=== PATIENT | male | born 1960 | race Caucasian/White ===

== ENCOUNTER 2016-08-22 01:49 | Inpatient (IN) | payer OTHER ==
[~2016-08-22] VITALS: Ht 157.5 cm; Wt 65.8 kg
[~2016-08-22 01:49] MED LIST: AMLO5TAB4 PO; APR50 PO; ASPI81TA16 PO; ATOR80TA75 PO; CARV6.2579 PO; CLOP75TA27 PO; GABA100C14 PO; GLIP-95 PO; IBUP-1542 PO; ISOS30TA5 PO
[2016-08-22] MEDS ORDERED: ONDANSETRON 4 MG INJ IV ONE (02:13)
[2016-08-22] MEDS ORDERED: morphine 4 MG/ML VIAL IV ONE (02:13)
[2016-08-22] MEDS ORDERED: hydrALAzine 20 MG INJ IV ONE (02:30)
--- NOTE | 2016-08-22 03:11 | RADRPT ---
PROCEDURE: Chest. CLINICAL INDICATION: Chest pain. TECHNIQUE: Single frontal view of the chest was obtained. COMPARISON: 08/05/2016. FINDINGS: The cardiac silhouette is enlarged. The aortic arch is unremarkable. There is mild bibasilar atele ctasis and small pleural effusions. There is mild central vascular congestion. There is no pneumot horax. IMPRESSION: Moderate cardiomegaly and mild central vascular congestion, unchanged. Mild bibasilar atelectasis and small pleural effusions, increased. .Suhas Rangel MD, Date Time Electronically viewed and signed by .Suhas Rangel MD, MD on 08/22/2016 03:10 .T/
--- NOTE | 2016-08-22 03:45 | RADRPT ---
PROCEDURE: CT Abdomen and pelvis without contrast. CLINICAL INDICATION: Abdominal pain. TECHNIQUE: CT scan of the abdomen and pelvis was performed on the [facility] LightSpeed 6 4 slice VCT scanner. Contiguous axial images using 2.5 mm slice thickness were obtained from the frank ng bases to the ischial tuberosities without intravenous contrast. Coronal and sagittal reformatted images were also obtained. Images were reviewed on the PACS workstation. One or more of the following dose reduction techniques were used: - Automated exposure control. - Adjustment of the mA and/or kV according to patient size. - Use of iterative reconstruction technique. Exam CTD/vol = 11.03 mGy. Total exam DLP = 674.92 mGy-cm. COMPARISON: 08/02/2016. FINDINGS: Evaluation of the lung bases demonstrates bilateral moderate pleural effusions with underlying atele ctasis. The heart is enlarged with coronary artery calcifications. Abdomen: The liver is normal in size. There is no focal mass or dilatation of the biliary tree. Ther e is been interval cholecystectomy with mild stranding and fluid within the gallbladder fossa. There is minimal pneumobilia. A biliary stent is present. The spleen, pancreas and bilateral adrenal gla nds are within normal limits. Bilateral kidneys are normal in size with no contour deforming mass id entified. There is no radiopaque renal or ureteral calculus identified. There is no hydronephrosis o r hydroureter. There is no retroperitoneal adenopathy. The abdominal aorta is of normal caliber with scattered atherosclerotic calcifications. There is a small umbilical hernia containing fat. There is moderate retained stool within the colon. There is no bowel obstruction or free air. A normal appendix is identified. There is no diverticulo sis or diverticulitis. There is mild intra-abdominal stranding and free fluid. Pelvis: The bladder is unremarkable. The prostate and seminal vesicles are within normal limits. The re is no significant pelvic adenopathy. There is moderate pelvic free fluid. Evaluation of the osseous structures demonstrates no suspicious lytic or blastic lesion. IMPRESSION: Status post cholecystectomy with mild fluid and stranding within the gallbladder fossa. There is mi ld to moderate abdominal and pelvic free fluid which is new compared with the prior study. Further evaluation for biliary leak is recommended with hepatobiliary nuclear scan. Biliary stent unchanged. Bilateral moderate pleural effusions with underlying atelectasis, unchanged compared with the prior study. Moderate cardiomegaly. Vascular calcifications reflective of atherosclerosis. Small umbilical hernia containing fat. Moderate retained stool within the colon. .Suhas Rangel MD, Date Time Electronically viewed and signed by .Suhas Rangel MD, MD on 08/22/2016 03:45 .T/
[2016-08-22 03:58] LABS: ADD UMIC YES; URINE BILIRUBIN (Dip) NEGATIVE (NEGATIVE); URINE BLOOD (Dip) 1+ (NEGATIVE); URINE COLOR LT. YELLOW (YELLOW); URINE GLUCOSE (Dip) NEGATIVE (NEGATIVE); URINE KETONES (Dip) NEGATIVE (NEGATIVE); URINE LEUKOCYTE ESTERASE (Dip) NEGATIVE (NEGATIVE); URINE NITRITE (Dip) NEGATIVE (NEGATIVE); URINE TOTAL PROTEIN (Dip) 4+ (NEGATIVE); URINE UROBILINOGEN (Dip) 0.2 E.U./dL (0.1-1.0)
[2016-08-22 04:07] LABS: INR 1.19; PROTIME 15.2 Sec (12.2-14.2); PT RATIO 1.2
[2016-08-22 04:08] LABS: PARTIAL THROMBOPLASTIN TIME 35.7 Sec (25.0-35.0)
[2016-08-22 04:10] LABS: BASOPHILS % 0.5 % (0.0-2.0); EOSINOPHILS # 0.3 10^3/ul (0.0-0.5); EOSINOPHILS % 4.4 % (0.0-7.0); HEMATOCRIT 29.1 % (42.0-52.0); HEMOGLOBIN 9.4 g/dl (14.0-18.0); LYMPHOCYTES # 1.1 10^3/ul (0.8-2.9); LYMPHOCYTES % 17.2 % (15.0-51.0); MEAN CORPUSCULAR HEMOGLOBIN 25.5 pg (29.0-33.0); MEAN CORPUSCULAR HGB CONC 32.2 g/dl (32.0-37.0); MEAN PLATELET VOLUME 8.9 fl (7.4-10.4); MONOCYTE # 0.6 10^3/ul (0.3-0.9); MONOCYTES % 10.3 % (0.0-11.0); NEUTROPHIL # 4.2 10^3/ul (1.6-7.5); NEUTROPHILS % 67.6 % (39.0-77.0); PLATELET COUNT 278 10^3/UL (140-440); RED BLOOD COUNT 3.68 10^6/ul (4.70-6.10); RED CELL DISTRIBUTION WIDTH 18.7 % (11.5-14.5); UNCORRECTED WBC 6.2 10^3/ul (4.8-10.8); WHITE BLOOD COUNT 6.2 10^3/ul (4.8-10.8)
[2016-08-22 04:11] LABS: ALBUMIN 3.4 g/dl (3.3-4.9); CONDITION 1; LH ANALYZER COMMENTS 1
[2016-08-22 04:12] LABS: POTASSIUM 3.9 mmol/L (3.5-5.1)
[2016-08-22 04:14] LABS: ALBUMIN/GLOBULIN RATIO 1.06; BILIRUBIN,INDIRECT 0.2 mg/dl (0-1.1); BILIRUBIN,TOTAL 0.2 mg/dl (0.2-1.3); CREATININE 1.86 mg/dl (0.61-1.24); TOTAL PROTEIN 6.6 g/dl (6.1-8.1)
[2016-08-22 04:15] LABS: CALCIUM 8.4 mg/dl (8.4-10.2)
[2016-08-22 04:19] LABS: SQUAMOUS EPITHELIAL CELL,UR RARE
[2016-08-22] MEDS ORDERED: DEXTROSE 50% 50 ML SYRINGE ONE (04:21)
[2016-08-22 04:28] LABS: TROPONIN-I 0.022 ng/ml (0.00-0.12)
[2016-08-22] MEDS ORDERED: DEXTROSE 50% 50 ML SYRINGE IV ONE (04:30)
--- NOTE | 2016-08-22 04:39 | ERA ---
ER Documentation Chief Complaint Date/Time DATE: 08/22/16 TIME: 04:37 Chief Complaint left foot pain x 3 months up to hip, back, abd swelling. 15days postop chol HPI This is a 55-year-old male with left foot pain for 3 months to his back. Patient also has noted abdominal swelling. He is 17 days post cholecystectomy here at [facility]. He also complains of shortness of breath. He denies any localized abdominal pain, but does complain of some diffuse abdominal pain that tends to radiate to his epigastric region. No fevers no chills. No moises chest pain. No other current complaints. ROS All systems reviewed and are negative except as per history of present illness. Medications Home Meds Active Scripts Isosorbide Mononitrate* (Isosorbide Mononitrate*) 30 Mg Tab.er.24h, 30 MG PO BID , #60 1 Refill Prov:KI GREWAL S. 08/10/16 Hydralazine Hcl* (Hydralazine Hcl*) 50 Mg Tab, 50 MG PO BID, #60 TAB 1 Refill Prov:KI GREWAL S. 08/10/16 Ibuprofen* (Ibuprofen*) 600 Mg Tablet, 600 MG PO Q8 for PAIN AND/OR INFLAMMATION , #30 TAB Prov:ENRIKE ALCANTAR MD 04/01/16 Reported Medications Amlodipine Besylate* (Norvasc*) 5 Mg Tablet, 5 MG PO BID, TAB 04/04/16 Clopidogrel Bisulfate (Clopidogrel) 75 Mg Tablet, 75 MG PO DAILY, #30 TAB 04/04/16 Gabapentin* (Gabapentin*) 100 Mg Capsule, 200 MG PO TID, #180 CAP 03/07/16 Carvedilol* (Carvedilol*) 6.25 Mg Tablet, 6.25 MG PO BID, #60 TAB 02/27/16 Glipizide* (Glipizide*) 10 Mg Tablet, 10 MG PO DAILY 12/20/15 Atorvastatin* (Atorvastatin*) 80 Mg Tablet, 80 MG PO QHS, #30 TAB 11/22/15 Aspirin (LOW DOSE ASPIRIN EC) 81 Mg Tablet.dr, 81 MG PO DAILY, #30 TAB 11/22/15 Allergies Allergies: Coded Allergies: No Known Allergy (Unverified , 08/07/16) PMhx/Soc History of Surgery: Yes (S/P cholecystectomy on 08/06/16. ) Anesthesia Reaction: No Hx Neurological Disorder: No Hx Respiratory Disorders: No Hx Cardiac Disorders: Yes (cad, cardiomyopathy, chf) Hx Psychiatric Problems: No Hx Miscellaneous Medical Probl: Yes (CAD, CHF, cardiomyopathy, DM2, HTN, CKD. ) Hx Alcohol Use: No Hx Substance Use: No Hx Tobacco Use: No Smoking Status: Never smoker Physical Exam Vitals Vital Signs Date Time Temp Pulse Resp B/P Pulse Ox O2 Delivery O2 Flow Rate FiO2 08/22/16 03:38 63 20 165/90 96 Room Air 08/22/16 02:39 97.6 64 20 201/114 96 Room Air 08/22/16 01:54 97.2 69 20 220/112 99 Physical Exam Const: [] Head: Atraumatic Eyes: Normal Conjunctiva ENT: Normal External Ears, Nose and Mouth. Neck: Full range of motion..~ No meningismus. Resp: Clear to auscultation bilaterally Cardio: Regular rate and rhythm, no murmurs Abd: Soft, non tender, non distended. Normal bowel sounds Skin: No petechiae or rashes Back: No midline or flank tenderness Ext: No cyanosis, or edema Neur: Awake and alert Psych: Normal Mood and Affect Result Diagram: 08/22/164 08/22/16 0254 Results 24 hrs Laboratory Tests Test 08/22/16 02:13 08/22/16 02:54 Urine Bilirubin NEGATIVE Urine Clarity CLEAR Urine Color LT. YELLOW Urine Glucose NEGATIVE% Urine Hemoglobin 1+ Urine Ketones NEGATIVE Urine Leukocyte Esterase NEGATIVE Urine Microscopic RBC 2-5/HPF Urine Microscopic WBC NONE SEEN/HPF Urine Nitrite NEGATIVE Urine Specific Parsons 1.020 Urine Squamous Epithelial Cells RARE Urine Total Protein 4+ Urine Urobilinogen 0.2 E.U./dL Urine pH 6.0 Activated Partial Thromboplast Time 35.7Sec Alanine Aminotransferase (ALT/SGPT) 39IU/L Albumin 3.4g/dl Albumin/Globulin Ratio 1.06 Alkaline Phosphatase 234IU/L Anion Gap 17 Aspartate Amino Transf (AST/SGOT) 46IU/L Basophils # 0.010^3/ul Basophils % 0.5% Blood Morphology Comment Blood Urea Nitrogen 35mg/dl Calcium Level 8.4mg/dl Carbon Dioxide Level 29mmol/L Chloride Level 100mmol/L Creatinine 1.86mg/dl Direct Bilirubin 0.00mg/dl Eosinophils # 0.310^3/ul Eosinophils % 4.4% Globulin 3.20g/dl Glucose Level 48mg/dl Hematocrit 29.1% Hemoglobin 9.4g/dl INR International Normalized Ratio 1.19 Indirect Bilirubin 0.2mg/dl Lipase 531U/L Lymphocytes # 1.110^3/ul Lymphocytes % 17.2% Mean Corpuscular Hemoglobin 25.5pg Mean Corpuscular Hemoglobin Concent 32.2g/dl Mean Corpuscular Volume 79.0fl Mean Platelet Volume 8.9fl Monocytes # 0.610^3/ul Monocytes % 10.3% Neutrophils # 4.210^3/ul Neutrophils % 67.6% Nucleated Red Blood Cells # 0.010^3/ul Nucleated Red Blood Cells % 0.0/100WBC Platelet Count 60469^3/UL Potassium Level 3.9mmol/L Prothrombin Time 15.2Sec Prothrombin Time Ratio 1.2 Red Blood Count 3.6810^6/ul Red Cell Distribution Width 18.7% Sodium Level 142mmol/L Total Bilirubin 0.2mg/dl Total Protein 6.6g/dl Troponin I 0.022ng/ml White Blood Count 6.210^3/ul Current Medications Medications (Trade) Dose Ordered Sig/Ni Route PRN Reason Start Time Stop Time Status Last Admin Dose Admin Morphine Sulfate (morphine) 4 mg ONCE ONCE IV 08/22/16 02:13 08/22/16 02:14 DC 08/22/16 02:55 Ondansetron HCl (Zofran Inj) 4 mg ONCE ONCE IV 08/22/16 02:13 08/22/16 02:14 DC 08/22/16 02:54 Hydralazine HCl (Apresoline) 20 mg ONCE ONCE IV 08/22/16 02:30 08/22/16 02:31 DC 08/22/16 02:54 Dextrose (D50w Syringe) 50 ml STK-MED ONCE .ROUTE 08/22/16 04:21 08/22/16 04:22 DC Dextrose (D50w Syringe) 50 ml ONCE ONCE IV 08/22/16 04:30 08/22/16 04:31 DC 08/22/16 04:28 Procedures/MDM Chest X-ray 1V Interpreted by me: Soft Tissue: No acute abnormalities Bones: No acute abnormalities Mediastinum/Cardiac Silhouette/Lungs: Increased interstitial fluid markings. Impression: CHF EKG: Rate/Rhythm: [Normal Sinus Rhythm] QRS, ST, T-waves: [No changes consistent w/ acute ischemia] Impression: [No evidence of ischemia or arrhythmia] CT abdomen pelvis shows possible biliary leak. Please see radiologist full dictation for report. Medical decision-making: This 55 gentleman has multiple issues. He has a CHF along with hypertensive urgency. Is been treated with hydralazine and Lasix here. He also has acute pancreatitis. Patient also has possible biliary leak. He will be admitted to the hospitalist. A page has been placed to Dr. ordonez who did the initial cholecystectomy. Departure Diagnosis: Primary Impression: CHF (congestive heart failure) Qualified Code: I50.9 - Congestive heart failure, unspecified congestive heart failure chronicity, unspecified congestive heart failure type Additional Impressions: Pancreatitis Qualified Code: K85.90 - Acute pancreatitis, unspecified complication status, unspecified pancreatitis type Bile leak, postoperative Hypertensive urgency, malignant Condition: Serious JORY DESOUZA Aug 22, 2016 04:39
[2016-08-22] MEDS ORDERED: DOCUSATE SODIUM 100 MG CAP PO PRN (06:00)
[2016-08-22] MEDS ORDERED: ONDANSETRON 4 MG INJ IV PRN (06:00)
[2016-08-22] MEDS ORDERED: HYDROCODONE/APAP (5/325) TAB PO PRN (06:00)
[2016-08-22] MEDS ORDERED: ACETAMINOPHEN 325 MG TAB PO PRN (06:00)
[2016-08-22] MEDS ORDERED: NACL 0.9% 3 ML SYG IV SCH (06:00)
[2016-08-22] MEDS: FUROSEMIDE 40 MG INJ IV SCH ×2 (07:05→17:56)
[2016-08-22] MEDS ORDERED: GABAPENTIN 300 MG CAP PO ONE (09:00)
[2016-08-22] MEDS ORDERED: [UNRECOGNIZED DRUG - REMARK] XX SCH (09:00)
[2016-08-22] MEDS: INSULIN ASPART [NOVOLOG] 3 ML PEN SC SCH ×4 (09:20→20:25)
[2016-08-22] MEDS: ASPIRIN (EC) 81 MG TAB PO SCH (09:43)
[2016-08-22] MEDS: AMLODIPINE 5 MG TAB PO SCH ×2 (09:43→20:19)
[2016-08-22] MEDS: ISOSORBIDE MONONITRATE(SR)30 MG TAB PO SCH ×2 (09:44→20:18)
--- NOTE | 2016-08-22 09:44 | HP ---
DATE OF ADMISSION: 08/22/2016 TIME: 7:30 a.m. CHIEF COMPLAINT: Focal pain. HISTORY OF PRESENT ILLNESS: The patient is a 55-year-old male with a history of type 2 diabetes, ch ronic kidney disease, hypertension and coronary artery disease, CHF with an EF of 30% and diastolic heart failure. The patient also has a recent history of cholecystitis status post laparoscopic chol ecystectomy several weeks ago. The patient presented to the ED today because of foot pain as well as shoulder pain. Both of these things are chronic in nature. The patient also reports some lower abd ominal pain but has no other complaints at this time. Once again, the pain in the shoulder and foot are chronic in nature. He denies any ulcers in his foot and he does not have a sequins winder. In the ED, the patient had a CT of the abdomen that showed some postop free fluid. Evaluation of biliary leak was recommended. The patient also had a chest x-ray in the ED that showed a small pleural effu bridger that have increased. The patient once again denies any shortness of breath, denies any chest pa in. The patient has no other complaints at this time. PAST MEDICAL HISTORY: As per HPI. PAST SURGICAL HISTORY: 1. Recent laparoscopic cholecystectomy. 2. PCI in the past. HOME MEDICATIONS: 1. Glipizide. 2. Ibuprofen. 3. Norvasc. 4. Aspirin. 5. Atorvastatin. 6. Coreg. 7. Plavix. 8. Gabapentin. 9. Hydralazine. 10. Imdur. ALLERGIES: NO KNOWN DRUG ALLERGIES. FAMILY HISTORY: Noncontributory. SOCIAL HISTORY: Denies any alcohol, tobacco, or drug abuse. REVIEW OF SYSTEMS: A 12-point review of systems negative except that discussed in HPI. PHYSICAL EXAMINATION: VITAL SIGNS: Temperature is 98.2, pulse 60, respiration rate 16, BP is 181/101, saturation 99% on r oom air. GENERAL: No acute distress, alert and oriented. HEENT: Normocephalic, atraumatic. LUNGS: Clear to auscultation. CARDIOVASCULAR: Regular rate and rhythm. ABDOMEN: Nondistended, nontender, soft. EXTREMITIES: No clubbing, cyanosis, or edema. NEUROLOGIC: No ulcerations noted on the feet. LABORATORIES: White count 6.2, hemoglobin 9.4, MCV 79.0, platelets are 78. Chemistry within normal limits except for BUN of 35, creatinine 1.86. Sugars are low at 48, repeat glucose 129, alkaline p hosphatase 234, lipase is 531. DIAGNOSTICS: Chest x-ray shows a moderate cardiomegaly and mild central vascular congestion, unchan ged and a small pleural effusion that increased. Abdominal pelvic CT shows status post cholecystecto my, mild to moderate pelvic free fluid. Further evaluation of biliary leak recommended, biliary ston e change. There is bilateral moderate pleural effusions, unchanged compared with prior study, modera te cardiomegaly, atherosclerosis, small umbilical hernia containing fat. Moderate retained stool wi thin the colon. ASSESSMENT AND PLAN: 1. Chronic foot pain. The patient's description of the pain is consistent with a picture of neurop athy. He states that the pain does shoot up into his knees. Also the patient on gabapentin. He has no ulcerations on his feet. 2. Abdominal pain, likely secondary to pancreatitis. Etiology is unclear. Could be related to rec ent laparoscopic cholecystectomy and possibly some cholelithiasis. Keep the patient n.p.o. at this time, will treat with IV fluids. The patient did have recent laparoscopic cholecystectomy once agai n with Dr. Olson, who has been consulted in the ED for further recommendations of free fluid in the pelvis, is to be expected postoperatively. Once again will follow up with Dr. Olson's recommendat ions. 3. Shoulder pain, likely musculoskeletal in nature from chronic bed bound state. The patient states that he spends a lot of time in bed. Treat with pain control. No other acute intervention at this time for the shoulder pain. 4. Chronic kidney disease, stable. 5. Diabetes. The patient's sugar was low on arrival. The CKD is worsening. The recommendation wi ll be to stop the Glipizide upon discharge as once again his renal failure is likely worsening and h is diabetes is auto correcting secondary to decreased GFR and persistence of insulin within the bloo d. Once again recommendation is to discontinue Glipizide, especially if sugars continue to be low d uring this hospitalization. We will hold glipizide at this time and put the patient on sliding scal e. 6. History of coronary artery disease, stable. Continue home medications. 7. History of systolic and diastolic heart failure, slightly decompensated at this time, with a sli ght increase in pleural effusions. The patient denies any shortness of breath but will increase the Lasix to 40 b.i.d. for the time being. 8. Prophylaxis. Sequential compression devices. Dictated By: HEATHER MILES MD BS/NTS Conf#: [id number] DID#: [id number]
[2016-08-22] MEDS: CLOPIDOGREL 75 MG TAB PO SCH (09:45)
[2016-08-22] MEDS ORDERED: GLUCAGON 1 MG INJ IM PRN (10:00)
[2016-08-22] MEDS ORDERED: DEXTROSE 50% 50 ML SYRINGE IV PRN ×2 (10:00)
[2016-08-22] MEDS ORDERED: GLUCOSE GEL 15 GRAM TUBE PO PRN ×2 (10:00)
[2016-08-22] MEDS ORDERED: GLUCOSE GEL 15 GRAM TUBE BUCCAL PRN (10:00)
[2016-08-22 10:26] VITALS: TEMP 98.6
[2016-08-22] MEDS: morphine 2 MG INJ IV PRN ×3 (12:44→22:36)
[2016-08-22 16:30] VITALS: PULSE 57
[2016-08-22 16:37] VITALS: BP 182/99; RESP 17
[2016-08-22 16:44] VITALS: Ht 157.5 cm; Wt 65.8 kg
[2016-08-22 18:56] VITALS: BP 139/97; PULSE 65
[2016-08-22] MEDS ORDERED: hydrALAzine 20 MG INJ IV PRN (19:00)
[2016-08-22 20:11] VITALS: PULSE 60
[2016-08-22] MEDS: GABAPENTIN 100 MG CAP PO SCH (20:19)
[2016-08-22] MEDS ORDERED: ATORVASTATIN 80 MG TAB PO SCH (21:00)
[2016-08-23] VITALS (9 sets, daily range): BP systolic 137–192; BP diastolic 58–97; PULSE 54–65; RESP 18–20
[2016-08-23] MEDS: morphine 2 MG INJ IV PRN (05:01)
[2016-08-23] MEDS: FUROSEMIDE 40 MG INJ IV SCH (06:08)
[2016-08-23 06:48] LABS: BASOPHILS % 0.5 % (0.0-2.0); EOSINOPHILS # 0.5 10^3/ul (0.0-0.5); EOSINOPHILS % 10.5 % (0.0-7.0); HEMATOCRIT 28.5 % (42.0-52.0); HEMOGLOBIN 9.3 g/dl (14.0-18.0); LYMPHOCYTES # 1.1 10^3/ul (0.8-2.9); LYMPHOCYTES % 24.6 % (15.0-51.0); MEAN CORPUSCULAR HGB CONC 32.7 g/dl (32.0-37.0); MEAN CORPUSCULAR VOLUME 79.5 fl (82.0-101.0); MEAN PLATELET VOLUME 8.5 fl (7.4-10.4); MONOCYTE # 0.6 10^3/ul (0.3-0.9); NEUTROPHIL # 2.4 10^3/ul (1.6-7.5); NEUTROPHILS % 52.4 % (39.0-77.0); PLATELET COUNT 285 10^3/UL (140-440); RED BLOOD COUNT 3.59 10^6/ul (4.70-6.10); RED CELL DISTRIBUTION WIDTH 18.5 % (11.5-14.5); UNCORRECTED WBC 4.7 10^3/ul (4.8-10.8); WHITE BLOOD COUNT 4.7 10^3/ul (4.8-10.8)
[2016-08-23 06:57] LABS: CONDITION 1; LH ANALYZER COMMENTS 1
[2016-08-23 07:00] LABS: POTASSIUM 3.4 mmol/L (3.5-5.1)
[2016-08-23 07:03] LABS: CREATININE 1.79 mg/dl (0.61-1.24)
[2016-08-23 07:04] LABS: CALCIUM 8.2 mg/dl (8.4-10.2); MAGNESIUM 1.8 mg/dl (1.7-2.5); PHOSPHORUS 4.6 mg/dl (2.5-4.9)
[2016-08-23] MEDS: INSULIN ASPART [NOVOLOG] 3 ML PEN SC SCH ×2 (08:00→12:00)
[2016-08-23] MEDS: CLOPIDOGREL 75 MG TAB PO SCH (08:16)
[2016-08-23] MEDS: ISOSORBIDE MONONITRATE(SR)30 MG TAB PO SCH (08:17)
[2016-08-23] MEDS: ASPIRIN (EC) 81 MG TAB PO SCH (08:17)
[2016-08-23] MEDS: AMLODIPINE 5 MG TAB PO SCH (08:17)
[2016-08-23] MEDS: GABAPENTIN 100 MG CAP PO SCH ×2 (08:17→12:30)
[2016-08-23] MEDS ORDERED: POTASSIUM CHLORIDE (SR) 20 MEQ TAB PO STA (10:41)
[2016-08-23] MEDS ORDERED: FURO20TA PO (10:43)
[2016-08-23] MEDS ORDERED: GABA100C14 PO (10:54)
--- NOTE | 2016-08-23 10:59 | PDOCDIS ---
Discharge Instructions DIAGNOSIS Discharge Diagnosis: 1. Acute pancreatitis 2. Chronic Kidney Disease HOME CARE INSTRUCTIONS: Special Diet: carbohydrate controlled ACTIVITY: Activity Restrictions: Rest between Activity FOLLOW UP/APPOINTMENTS Appointments 1. Follow up with your primary care provider in one week 2. Follow up with Dr. Lonnie Walsh in one week 3. Follow up with Dr. Eliezer Hale in 2 weeks OTHER ORDERS: Other Orders: 1. Call your primary care provider if you have worsening abdominal pain/nausea/ vomiting ZAYRA FERNÁNDEZ Aug 23, 2016 10:59
[2016-08-23] MEDS ORDERED: SITA25TA3 PO (11:06)
--- NOTE | 2016-08-23 17:22 | DS ---
DATE OF ADMISSION: 08/22/2016 DATE OF DISCHARGE: 08/23/2016 DISCHARGE DIAGNOSES: 1. Chronic foot pain likely secondary to diabetic neuropathy. 2. Abdominal pain secondary to pancreatitis. 3. Shoulder pain which is musculoskeletal. 4. History of chronic kidney disease. 5. Diabetes. 6. History of coronary artery disease. 7. History of systolic and diastolic heart failure. HOSPITAL COURSE: This is a 55-year-old male with history of type 2 diabetes and CKD and hypertensio n, CAD and CHF with EF of 30% with diastolic dysfunction. He was recently at [facility] secondary to cholecystitis, status post laparoscopic cholecystectomy several weeks ago. The patient came to [facility] due to reports of foot pain and shoulder pain, although these were chronic in nature. He also did have some abdominal pain. He did have a CT scan of the abdomen, but did show some postoperative free fluid. He also had noted elevated lipase enzymes. Raimundo smith did have abdominal pain, likely secondary to pancreatitis. The patient was kept n.p.o. and we did provide him with IV fluids. Of note, Dr. Steven Olson who is the physician who did receive la paroscopic cholecystectomy was consulted in the ER, who did report that free fluid in the pelvis cou ld be expected postoperatively. We did provide the patient with conservative management. As for his chronic foot pain, we did provide him with him with Neurontin as this was likely secondar y to his diabetic neuropathy. For shoulder pain, we also provided him with analgesics as needed. T he patient during his course of his stay, did improve. His lipase levels did downward trend and we did advance his diet and he was able to tolerate oral intake. We did continue the patient on insuli n regimen. We did discontinue his Glipizide due to his renal dysfunction. The patient was advised to follow up with service desk lead as outpatient and we did provide him with information for a nephrolog ist. The patient was otherwise optimized medically. We did continue him on statin medication and o ptimized him with his cardiovascular medications for his history of CHF and CAD. During his course of stay, as previously mentioned, he did improve. The plan of care was discussed with the patient a nd patient did verbalize his understanding. He denied any further abdominal pain and was able to to lerate oral intake on day of discharge. On the day of discharge, the patient was in stable conditio n. On discharge physical exam, his vital signs are stable. CONDITION: Stable. DISCHARGE PLAN 1. Patient's diet is carbohydrate controlled. 2. Patient to follow up with his primary care provider within a week. 3. Patient to follow up with Dr. Lonnie Walsh in 1 week. 4. Patient to follow up with Dr. Eliezer Hale in 2 weeks. 5. Patient to call primary care provider if he has worsening abdominal pain, nausea, vomiting. DISCHARGE MEDICATIONS 1. Lasix 20 mg p.o. every day. 2. Neurontin 400 mg p.o. t.i.d. 3. Januvia 25 mg p.o. every day. 4. Amlodipine 5 mg p.o. b.i.d. 5. Aspirin 81 mg p.o. every day. 6. Atorvastatin 80 mg p.o. at bedtime. 7. Carvedilol 6.25 mg p.o. b.i.d. 8. Plavix 75 mg p.o. daily. 9. Hydralazine 50 mg p.o. b.i.d. 10. Ibuprofen 600 mg p.o. q. 8 hours for pain. 11. Isosorbide mononitrate 30 mg p.o. b.i.d. DISCHARGE PROCESS TIME: 40 minutes. Discussed plan of care with Dr. Davis. Dictated By: ZAYRA FERNÁNDEZ [employer] for [employer]TS[employer]/MARILYN Conf#: [id number] DID#: [id number]
== END 2016-08-23 14:54 | disposition home or self-care (01) | DRG 74 ==
LOC: E/R 01:49 → MS4 04:36
PROVIDERS: ADMIT Internal Medicine; ATTEND Internal Medicine
DX: E11.42 Type 2 diabetes mellitus with diabetic polyneuropathy (principal); I50.32 Chronic diastolic (congestive) heart failure; E11.22 Type 2 diabetes mellitus with diabetic chronic kidney disease; K86.1 Other chronic pancreatitis; Z79.84 Long term (current) use of oral hypoglycemic drugs; M25.519 Pain in unspecified shoulder; I12.9 Hypertensive chronic kidney disease with stage 1 through stage 4 chronic kidney disease, or unspecified chronic kidney disease; N18.9 Chronic kidney disease, unspecified; I25.10 Atherosclerotic heart disease of native coronary artery without angina pectoris
CPT/HCPCS: 71010; 74176; 80048; 80053; 81001; 81003; 82962; 83036; 83690; 83735; 84100; 84484; 85025; 85610; 85730; 87086; J0360; J1815; J1940; J2270; J2405